=== PATIENT | male | born 1985 | race Caucasian/White ===

== ENCOUNTER → 2022-10-12 08:14 | Outpatient (CLI) | payer OTHER, SELFPAY ==
--- NOTE | ~2022-10-12 | MR_ITS ---
MRI of the left ankle Clinical history: Sprain Technique: Coronal proton-density and proton-density fat-sat images, axial proton-density and proton- density fat-sat images, and sagittal proton-density and proton-density fat-sat images were acquired. Findings: Syndesmotic ligaments are intact. Posterior talofibular ligament is intact. There is marked thickening and hyperintense signal of the anterior talofibular and calcaneofibular ligaments. Deltoi d ligament is intact. Medial flexor tendons, peroneal tendons, anterior extensor tendons, and Achilles tendon are intact. No osteochondral lesion of the talar dome identified. Bone marrow signals are unremarkable. Small tib iotalar and subtalar joint effusions are present, nonspecific. Plantar fascia intact. Normal signal preserved in the sinus Tarsi. No soft tissue mass evident. Impression: Thickening and increased signal of the anterior talofibular and calcaneofibular ligaments, compatible with moderate sprain. Small tibiotalar and subtalar joint effusions, nonspecific. Reviewed, dictated and finalized at location . [facility] Impression: Thickening and increased signal of the anterior talofibular and calcaneofibular ligaments, compatible with moderate sprain. Small tibiotalar and subtalar joint effusions, nonspecific.
== END ==
PROVIDERS: PCP Family Medicine; Visit Provider Nurse Practitioner
DX: S93.402A Sprain of unspecified ligament of left ankle, initial encounter (principal); X58.XXXA Exposure to other specified factors, initial encounter; M25.472 Effusion, left ankle
CPT/HCPCS: 73721